=== PATIENT | male | born 1940 | race Asian ===

== ENCOUNTER 2018-08-31 22:25 | Inpatient (IN) | payer OTHER ==
[~2018-08-31] VITALS: Ht 165.1 cm; Wt 60.8 kg
[~2018-08-31 22:25] MED LIST: AMLODIPINE BESY10 M1 PO; COLACE100 MG PO; COZAAR100 MG PO; FLA500 PO; LAC PO; LEVAQUIN750 MG PO; NEXIUM40 MG PO; NORCO1 TA1 PO; WELCHOL3.75 GM/P1 PO; [UNRECOGNIZED DRUG - CODE] PO
[2018-08-31 22:52] VITALS: Ht 165.1 cm; Wt 60.8 kg
[2018-09-01 00:53] LABS: BASOPHIL % 0.5 % (0-2); PLATELET COUNT 183 x10^3mcL (130-400); RED CELL DISTRIBUTION WIDTH 13.1 % (11.5-14.5)
[2018-09-01 01:06] LABS: CALCIUM 8.4 mg/dL (8.5-10.1); CARBON DIOXIDE 31.3 mmol/L (21-32); CHLORIDE SERUM 103 mmol/L (98-107); GLUCOSE SERUM 124 mg/dL (74-106); POTASSIUM SERUM 3.5 mmol/L (3.5-5.1); SODIUM SERUM 140 mmol/L (136-145)
[2018-09-01 01:19] LABS: ALBUMIN 3.5 g/dL (3.4-5.0); ALKALINE PHOSPHATASE 76 U/L (46-116); ALT/SGPT 27 U/L (16-63); AST/SGOT 15 U/L (15-37); BILIRUBIN TOTAL 0.52 mg/dL (0.20-1.00); TOTAL PROTEIN, SERUM 7.4 g/dL (6.4-8.2); TRIGLYCERIDES 140 mg/dL (<150)
[2018-09-01 01:21] LABS: T3 TOTAL 0.83 ng/mL
[2018-09-01 01:22] LABS: CHOLESTEROL 118 mg/dL (<200); CHOLESTEROL/HDL RATIO 3.8; HDL CHOLESTEROL 31 mg/dL (40-60)
[2018-09-01 01:23] LABS: FREE T4 1.05 ng/dL (0.76-1.46); FREE THYROXINE INDEX 2.7 ug/dL (1.4-4.5); T4(THYROXINE) 7.4 ug/dL (4.7-13.3)
[2018-09-01 01:28] LABS: microscopic required? NO
[2018-09-01 01:43] LABS: LIPASE 6454 IU/L (73-393)
[2018-09-01 01:50] LABS: urine erythrocyte NEGATIVE (NEGATIVE)
[2018-09-01] MEDS ORDERED: SIMVASTATIN10 M1 PO (02:21)
[2018-09-01] MEDS ORDERED: WELCHOL625 MG PO (02:21)
[2018-09-01 07:54] VITALS: BP 177/77
[2018-09-01 12:10] VITALS: BP 171/81
[2018-09-01 12:34] VITALS: BP 132/79; BP 171/97
[2018-09-01 14:24] VITALS: BP 165/71
[2018-09-01 16:45] VITALS: BP 157/72
[2018-09-01 21:31] VITALS: BP 156/77
[2018-09-02 04:46] VITALS: BP 134/68
[2018-09-02 06:20] LABS: BASOPHIL % 0.4 % (0-2); PLATELET COUNT 196 x10^3mcL (130-400); RED CELL DISTRIBUTION WIDTH 12.5 % (11.5-14.5)
[2018-09-02 07:01] LABS: ALBUMIN 3.4 g/dL (3.4-5.0); ALKALINE PHOSPHATASE 71 U/L (46-116); ALT/SGPT 27 U/L (16-63); AST/SGOT 16 U/L (15-37); BILIRUBIN DIRECT 0.14 mg/dL (0.0-0.2); BILIRUBIN TOTAL 0.6 mg/dL (0.20-1.00); CALCIUM 8.7 mg/dL (8.5-10.1); CARBON DIOXIDE 28.5 mmol/L (21-32); CHLORIDE SERUM 103 mmol/L (98-107); CREATININE SERUM 0.9 mg/dL (0.7-1.3); GLUCOSE SERUM 114 mg/dL (74-106); MAGNESIUM 2.3 mg/dL (1.8-2.4); POTASSIUM SERUM 3.3 mmol/L (3.5-5.1); SODIUM SERUM 139 mmol/L (136-145); TOTAL PROTEIN, SERUM 7.5 g/dL (6.4-8.2)
[2018-09-02 07:22] LABS: LIPASE 4278 IU/L (73-393)
[2018-09-02 08:38] VITALS: BP 119/71
[2018-09-02 14:11] VITALS: BP 172/81
[2018-09-02 14:41] VITALS: BP 151/77
[2018-09-02 16:55] VITALS: BP 147/76
[2018-09-02 21:29] VITALS: BP 162/82
[2018-09-03 04:59] VITALS: BP 151/76
[2018-09-03 06:38] LABS: CALCIUM 8.4 mg/dL (8.5-10.1); CARBON DIOXIDE 30.3 mmol/L (21-32); CHLORIDE SERUM 105 mmol/L (98-107); CREATININE SERUM 0.8 mg/dL (0.7-1.3); GLUCOSE SERUM 142 mg/dL (74-106); LIPASE 442 IU/L (73-393); MAGNESIUM 2.4 mg/dL (1.8-2.4); POTASSIUM SERUM 3.9 mmol/L (3.5-5.1); SODIUM SERUM 140 mmol/L (136-145)
[2018-09-03 06:48] LABS: BASOPHIL % 0.4 % (0-2); PLATELET COUNT 207 x10^3mcL (130-400); RED CELL DISTRIBUTION WIDTH 12.8 % (11.5-14.5)
[2018-09-03 09:18] VITALS: BP 152/78
[2018-09-03 16:00] VITALS: BP 151/66
[2018-09-03 21:33] VITALS: BP 160/75
[2018-09-04 05:50] VITALS: BP 156/81
[2018-09-04 06:42] LABS: BASOPHIL % 0.3 % (0-2); PLATELET COUNT 211 x10^3mcL (130-400); RED CELL DISTRIBUTION WIDTH 12.4 % (11.5-14.5)
[2018-09-04 07:30] LABS: ALBUMIN 3.4 g/dL (3.4-5.0); ALKALINE PHOSPHATASE 77 U/L (46-116); ALT/SGPT 92 U/L (16-63); AST/SGOT 45 U/L (15-37); BILIRUBIN TOTAL 0.6 mg/dL (0.20-1.00); CALCIUM 8.7 mg/dL (8.5-10.1); CARBON DIOXIDE 26.9 mmol/L (21-32); CHLORIDE SERUM 103 mmol/L (98-107); CREATININE SERUM 0.9 mg/dL (0.7-1.3); GLUCOSE SERUM 136 mg/dL (74-106); LIPASE 228 IU/L (73-393); MAGNESIUM 2.1 mg/dL (1.8-2.4); PHOSPHOROUS 3.1 mg/dL (2.5-4.9); POTASSIUM SERUM 3.3 mmol/L (3.5-5.1); SODIUM SERUM 141 mmol/L (136-145); TOTAL PROTEIN, SERUM 7.3 g/dL (6.4-8.2)
[2018-09-04 08:30] VITALS: BP 139/89; BP 169/89
[2018-09-04 10:08] VITALS: BP 148/82
[2018-09-04 13:23] VITALS: BP 154/77
[2018-09-04 13:45] VITALS: BP 148/80
[2018-09-04 15:33] VITALS: BP 148/80
== END 2018-09-04 16:30 | disposition home or self-care (01) | DRG 439 ==
LOC: ED 22:25 → MU 09-01 04:33
PROVIDERS: Internal Medicine Pulmonary Disease; Specialist
DX: K85.30 Drug induced acute pancreatitis without necrosis or infection (principal); K86.3 Pseudocyst of pancreas; K21.9 Gastro-esophageal reflux disease without esophagitis; I10 Essential (primary) hypertension; E78.5 Hyperlipidemia, unspecified; E86.9 Volume depletion, unspecified; Z87.11 Personal history of peptic ulcer disease; Z68.22 Body mass index [BMI] 22.0-22.9, adult
CPT/HCPCS: 83880; 84439; J0360; J1885; J7030; J7042; Q0092